=== PATIENT | female | born 1970 | race Caucasian/White ===

== ENCOUNTER 2018-12-28 20:48 | Emergency (ER) | payer OTHER ==
[2018-12-28] VITALS (11 sets, daily range): BP systolic 119–144; BP diastolic 68–83
[~2018-12-28] VITALS: Ht 172.7 cm; Wt 63.5 kg
--- NOTE | 2018-12-28 21:00 | NUR ---
ED Nurse Note: Recieved pt on gurney in restraints, pt here for combativeness, pt is on behavioral restraints and no monitoring, pt placed on cardiac monitoring, pt has blood on clothing and noted to be bleeing from vagina, pt is awake, very combative and restless, unable to completely assess, pt speaking very fast, threatning staff and combative towards all, pt to be medicated as ordered and will resume care as ordered.
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
[2018-12-28] MEDS ORDERED: Haloperidol 5mg/ml Inj IM ONE (21:45)
[2018-12-28] MEDS ORDERED: LORazepam Inj 2mg/ml 1ml IM ONE (21:45)
[2018-12-28] MEDS ORDERED: DiphenhydrAMINE 50mg/ml Inj IM ONE (21:45)
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
[2018-12-28 23:09] LABS: EOSINOPHILS % (AUTO) 1.5 % (0.0-3.0); HEMATOCRIT 37.5 % (37.0-47.0); HEMOGLOBIN 12.7 G/DL (12.0-16.0); LYMPHOCYTES % (AUTO) 32.6 % (20.0-45.0); MEAN CORPUSCULAR VOLUME 93 FL (80-99); MONOCYTES % (AUTO) 7.1 % (1.0-10.0); NEUTROPHILS % (AUTO) 57.8 % (45.0-75.0); PLATELET COUNT 264 K/UL (150-450); RED BLOOD COUNT 4.03 M/UL (4.20-5.40); RED CELL DISTRIBUTION WIDTH 11.8 % (11.6-14.8); WHITE BLOOD COUNT 6.8 K/UL (4.8-10.8)
[2018-12-28 23:13] LABS: ANION GAP 12 mmol/L (5-15); BLOOD UREA NITROGEN 21 mg/dL (7-18); CALCIUM 8.9 MG/DL (8.5-10.1); CARBON DIOXIDE 27 MMOL/L (21-32); CHLORIDE 109 MMOL/L (98-107); POTASSIUM 3.3 MMOL/L (3.5-5.1); SODIUM 147 MMOL/L (136-145)
[2018-12-28 23:18] LABS: ALANINE AMINOTRANSFERASE 21 U/L (12-78); ALBUMIN 3.6 G/DL (3.4-5.0); ALBUMIN/GLOBULIN RATIO 1.1 (1.0-2.7); ALKALINE PHOSPHATASE 81 U/L (46-116); ASPARTATE AMINO TRANSFERASE 17 U/L (15-37); BILIRUBIN,TOTAL 0.3 MG/DL (0.2-1.0); CREATINE KINASE 148 U/L (26-308)
[2018-12-29] VITALS (14 sets, daily range): BP systolic 108–126; BP diastolic 59–77
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
[2018-12-29 02:07] LABS: APPEARANCE,URINE CLEAR; BILIRUBIN, URINE NEGATIVE (NEGATIVE); GLUCOSE, URINE (UA) NEGATIVE (NEGATIVE); KETONES,URINE 2+ (NEGATIVE); LEUKOCYTE ESTERASE ,URINE NEGATIVE (NEGATIVE); NITRITE,URINE NEGATIVE (NEGATIVE); PH,URINE 5 (4.5-8.0); PROTEIN,URINE 2+ (NEGATIVE); UROBILINOGEN,URINE 1 MG/DL (0.0-1.0)
--- NOTE | 2018-12-29 02:07 | NUR ---
ED Nurse Note: Patient respectfully asked for restraints to be removed, request accomodated after discussion regarding behavioral expectations. ERMD informed.
[2018-12-29 02:09] LABS: COLOR,URINE YELLOW
--- NOTE | 2018-12-29 02:20 | NUR ---
ED Nurse Note: RETURNED FROM BREAK, PT RELEASED FROM RESTRAINTS BY NEW [facility], PT IN BED REMAINS NON-COHERENT AND NOT SPEAKING, DOES NTO ANSWER ANY QUESTIONS BUT IS CALM, RESTRAINTS TAKEN OFF ANKLES, PT GIVEN COMPLETE BATH AND LINENC HAGNE DUE TO VAGINELA BLEEDING, PT WAS SLIGHTLY COMBATIVE AT TIMES, PT ONVCARDIAC MONITORING, WILL CONTINUE TO CLOSELY MONITOR.
--- NOTE | 2018-12-29 04:15 | NUR ---
ED Nurse Note: PT REMAINS OUT OF RESTRAINTS, ON CARDIAC MONITORING, IV SITE PATENT, NAD OR CHANGES NOTED.
--- NOTE | 2018-12-29 05:00 | NUR ---
ED Nurse Note: PT CONTINUES TO SLEEP, GIVEN BATH AND LINEN CHANGE, EMILEE-PAD APPLIED FOR PT, PT AWAKENS MORE BUT REMAINS SLIGHTLY NON-COOPERATIVE, PULLING OUT IV LINE, RE-STARTED AND FLUIDS ALSO, PT RE-ORIENTATED AND WILL GIVE TRIALB EFORE RE-APPLYING RESTRAINTS IF PT CONTINUES, ON CARDIAC MONITORING, PT SPEAKING BUT MAKING NO SENSE, WILL CONTINUE TO CLOSELY MONITOR.
[2018-12-29] MEDS ORDERED: BENZTROPINE ME0.5 MG PO (05:59)
[2018-12-29] MEDS ORDERED: ZYPREXA5 MG ORAL (05:59)
--- NOTE | 2018-12-29 06:15 | NUR ---
ED Nurse Note: Pt awakened, is awake, alert and oriented x 4, pt is very calm and cooperative, denies cp or any pain, pt states she feels a lot better, pt also states she is not homeless and gave address, info given to admitting, pt given juice and sandwich to eat, eating now and tolerating well, will allow to eat and give pt clean, dry clothing and transportation assistance, will continue to closely monitor and prepare for discharge.
--- NOTE | 2018-12-29 07:25 | NUR ---
ED Nurse Note: Pt is resting on bed with no distress. AAO x4 with non labored breathing.
[2018-12-29] MEDS ORDERED: UNOBMED (07:27)
--- NOTE | 2018-12-29 08:27 | NUR ---
ER DISCHARGE NOTE: Patient is cleared to be discharged per ERMD, pt is aox4, on room air, with stable vital signs. pt was given dc and prescription instructions, pt was able to verbalize understanding, pt id band and iv site removed without complications. pt is able to ambulate with steady gait. pt took all belongings.
--- NOTE | 2018-12-29 11:13 | Cardiology Report ---
APPROVED REPORT EKG Measurement Heart [id number] Normal sinus rhythm with sinus arrhythmia Septal infarct, age undetermined Abnormal ECG
== END 2018-12-29 08:27 | disposition home or self-care (01) ==
LOC: EDBD 20:48 → EMR 21:19
DX: T76.21XA Adult sexual abuse, suspected, initial encounter (principal); F32.9 Major depressive disorder, single episode, unspecified; Z78.1 Physical restraint status; F20.9 Schizophrenia, unspecified; F17.200 Nicotine dependence, unspecified, uncomplicated; Z88.8 Allergy status to other drugs, medicaments and biological substances
CPT/HCPCS: 36415; 80053; 80307; 80329; 81003; 81025; 82550; 85025; 93005; 96372; 99284; J1200; J1630